=== PATIENT | male | born 1975 | race Caucasian/White ===

== ENCOUNTER → 2017-09-09 | Outpatient (CLI) | payer BC ==
[~2017-09-09] MED LIST: IOPAMIDOL 370 MG/ML 200 ML INFUS..BTL INJ ONE; SODIUM CHLORIDE 0.9% 100 ML ONE
--- NOTE | 2017-09-09 18:30 | Diagnostic Imaging Report ---
PROCEDURE: CT scan of the chest WITH intravenous contrast, using standard protocol. TECHNIQUE: The chest was scanned utilizing a multidetector helical scanner from the lung apex through the level of the adrenal glands after the IV administration of 100 cc of Isovue 370. Coronal and sagittal multiplanar reformations were obtained. COMPARISON: None. INDICATIONS: left rib pain, felt pop sat, abnormal chest x ray at outside facility (which is not available for review.) FINDINGS: Lines/tubes: None. Lungs and Airways: Mild bilateral lower lobe dependent atelectasis. The lungs are otherwise clear, without nodules, masses, other opacities or consolidation. Airways are clear, without endobronchial lesions. Pleura: No effusion, or pneumothorax. Heart and mediastinum: Thyroid is unremarkable. Heart size is normal. No pericardial effusion. Aorta is non-aneurysmal. Main pulmonary artery is normal in caliber. Lymph nodes: No mediastinal, hilar, or axillary adenopathy. Abdomen: Limited contrast-enhanced views of the upper abdomen show no abnormality within the visualized spleen, pancreas, or kidneys. 1.1 x 1.9 cm homogeneously enhancing lesion in hepatic segment VII (series 2 image 111. 5 mm fluid density lesions in hepatic segments II and IVB (series 2, images 106, and 116), consistent with simple cysts. The adrenal glands are normal. Bones: No osteolytic or osteoblastic lesions. Specifically, no focal rib lesions are identified. Very mild bilateral gynecomastia. IMPRESSION: 1. No focal osteolytic or osteoblastic lesion is identified. Specifically, no focal rib lesions are noted. Previously performed outside films would be helpful for comparison. 2. Essentially unremarkable chest CT. 3. Indeterminate 1.9 cm homogeneously enhancing lesion in hepatic segment VII. Recommend further evaluation with contrast-enhanced MRI abdomen with liver mass protocol. Andrea Ventura M.D. Dictated by: Andrea Ventura M.D. on 09/09/2017 at 18:33 Electronically approved by: Andrea Ventura M.D. on 09/09/2017 at 18:33
== END ==
LOC: CT 16:12
PROVIDERS: ATTEND Family Medicine
CPT/HCPCS: 71260; J7050; Q9967

== ENCOUNTER → 2017-09-17 | Outpatient (CLI) | payer BC ==
[~2017-09-17] MED LIST changes: +GADOBENATE DIMEGLUMINE 1 ML IV ONE; -IOPAMIDOL 370 MG/ML 200 ML INFUS..BTL INJ ONE; -SODIUM CHLORIDE 0.9% 100 ML ONE
--- NOTE | 2017-09-17 13:24 | Diagnostic Imaging Report ---
EXAM: MRI of the abdomen with and without contrast. INDICATION: Indeterminate liver lesion on prior CT examination. COMPARISON: None. CT chest with contrast dated 09/09/2017. TECHNIQUE: Multiplanar and multisequence imaging was performed of the abdomen. T1 and T2-weighted images were obtained with and without contrast. T1-weighted in and [id number] , Dynamic, post gadolinium T1-weighted spoiled gradient echo scans. 16 cc of Multihance were administered intravenously. Discussion: LOWER THORAX: Unremarkable. HEPATOBILIARY: There is a 1.9 cm T1 hypointense, T2 hyperintense lesion in segment 7 of the liver, which demonstrate homogeneous enhancement postcontrast remaining nearly isointense to blood pool on all postcontrast sequences without washout most suggestive of a flash filling hemangioma. 2 tiny T2 hyperintense, nonenhancing lesions in segments 4A and 5 consistent with tiny cysts. No biliary ductal dilation. GALLBLADDER: No radio-opaque stones or sludge. No wall thickening. SPLEEN: No splenomegaly. PANCREAS: No focal masses or ductal dilatation. ADRENALS: No adrenal nodules KIDNEYS/URETERS: Kidneys enhance symmetrically. No hydronephrosis. No cystic or solid mass lesions. No stones. GI TRACT: No abnormal distention, wall thickening, or evidence of bowel obstruction. Appendix is normal. LYMPH NODES: No lymphadenopathy. VESSELS: Unremarkable. PERITONEUM / RETROPERITONEUM: No free air or fluid. BONES: No suspicious lesions. SOFT TISSUES: No acute abnormality. IMPRESSION: 1.9 cm enhancing lesion in segment 7 of the liver most suggestive of a flash filling hemangioma. Signed by: Dr. Tori Westfall M.D. on 09/17/2017 1:20 PM
== END ==
LOC: MRI 07:38
PROVIDERS: ATTEND Family Medicine
DX: R93.8 Abnormal findings on diagnostic imaging of other specified body structures (principal)
CPT/HCPCS: 74183

== ENCOUNTER → 2018-07-20 | Outpatient (CLI) | payer BC ==
--- NOTE | 2018-07-20 15:29 | Diagnostic Imaging Report ---
EXAM: Renal Ultrasound INDICATION: Flank pain. COMPARISON: MRI abdomen with and without contrast 09/17/2017. TECHNIQUE: Transverse and longitudinal images of the kidneys and bladder were obtained. FINDINGS: Right Kidney: Length: Measures 12.1 x 6.0 x 6.0 cm Appearance: Normal echogenicity. Collecting system: No hydronephrosis Stones: None Cyst/Mass: None Left Kidney: Length: Measures 10.7 x 5.2 x 4.9 cm Appearance: Normal echogenicity. Collecting system: No hydronephrosis Stones: None Cyst/Mass: None Bladder: Unremarkable in appearance. Bilateral ureteral jets are visualized. IMPRESSION: Unremarkable renal ultrasound. No sonographic evidence of stone or hydronephrosis. Signed by: Dr. Flora Cabrera MD on 07/20/2018 3:25 PM
== END ==
LOC: US 12:22
PROVIDERS: ATTEND Family Medicine
DX: R10.9 Unspecified abdominal pain (principal)
CPT/HCPCS: 76770